=== PATIENT | male | born 1960 | race Caucasian/White ===

== ENCOUNTER → 2025-01-02 | Outpatient (CLI) | payer OTHER ==
--- NOTE | 2025-01-03 12:29 | HMCIMG ---
EXAM: CT Cardiac calcium scoring. CLINICAL HISTORY: Screening. TECHNIQUE: Thin collimated axial CT cardiac images were obtained. CT scan is done according to ALARA (As Low As Reasonably Achievable). CONTRAST: None. COMPARISON: None provided. FINDINGS: Calcium Score: VESSEL Number of lesions Volume mm3 Equi. Mass/mg Calcium score LM 0 0 - 0 LAD 2 52.4 - 69.6 LCX 1 9.3 - 7.9 RCA 3 16.5 - 20.6 Total 6 78.2 - 98.1 IMPRESSION: The calcium score is 98.1. This corresponds with the 67th percentile. /Ollie
== END | disposition home or self-care (01) ==
LOC: RAH 14:09
PROVIDERS: ATTEND Nurse Practitioner Adult Health
DX: Z13.6 Encounter for screening for cardiovascular disorders (principal)
CPT/HCPCS: 75571